=== PATIENT | female | born 1985 | race Caucasian/White ===

== ENCOUNTER 2018-07-08 11:12 | Outpatient (CLI) | END 2018-07-08 14:25 | disposition home or self-care (01) ==

== ENCOUNTER 2018-07-09 23:15 | Inpatient (IN) | END 2018-07-12 16:17 | disposition home or self-care (01) | DRG 775 ==

== ENCOUNTER 2018-09-02 03:54 | Inpatient (IN) | END 2018-09-03 14:20 | disposition home or self-care (01) | DRG 440 ==

== ENCOUNTER 2018-10-15 15:20 | Inpatient (IN) | END 2018-10-18 21:25 | disposition home or self-care (01) | DRG 446 ==